=== PATIENT | male | born 1970 | race American Indian/Alaskan Native ===

== ENCOUNTER 2019-09-26 06:33 | Emergency (ER) | payer OTHER ==
[2019-09-26] MEDS ORDERED: FLUORESCEIN 1 MG STRIP OP ONE ×2 (08:04→08:07)
--- NOTE | 2019-09-26 09:33 | Emergency Department Report ---
ED Eye Problem HPI - General Chief complaint: Eye Problems Stated complaint: LEFT EYE IRRITATION Time Seen by Provider: 09/26/19 08:08 Source: patient Mode of arrival: Ambulatory Limitations: No Limitations - History of Present Illness Initial comments: 49-year-old -Citizen Of [place] male presents emergency department complaining of having slept with his contact about 2 days ago and since that time is been having some continued pain, discharge and progressively worsening and pressure to the left. States that his vision has significantly decreased as well. No fever, chills, sweats no ear pain no nausea, no no vomiting, no headache. chief complaint: eye pain, eye redness, vision change -: Gradual Location: left eye Place: home Eye Symptoms: redness, pain, discharge, decreased vision Severity: mild, moderate If Pain, Quality: throbbing Consistency: constant Associated Symptoms: none Treatments Prior to Arrival: none - Related Data Patient Tetanus UTD: No Allergies Allergy/AdvReac Type Severity Reaction Status Date / Time No Known Allergies Allergy Unverified 09/26/19 08:04 ED Review of Systems ROS: Stated complaint: LEFT EYE IRRITATION Other details as noted in HPI Comment: All other systems reviewed and negative ED Past Medical Hx - Past Medical History Previous Medical History?: Yes Hx Hypertension: Yes - Surgical History Past Surgical History?: No - Social History Smoking Status: Never Smoker Substance Use Type: None ED Physical Exam - General Limitations: No Limitations General appearance: alert, in no apparent distress - Head Head exam: Present: atraumatic, normocephalic - Expanded Eye Exam Expanded Eyelids: Erythema: Left, Swelling: Left Sclera/Conjunctival: Injection: Left Anterior chamber: Hyphema: Left (pt has hypopyon to left eye) - ENT ENT exam: Present: normal exam, mucous membranes moist, TM's normal bilaterally - Neck Neck exam: Present: normal inspection - Respiratory Respiratory exam: Present: normal lung sounds bilaterally. Absent: respiratory distress, wheezes, rales, rhonchi - Cardiovascular Cardiovascular Exam: Present: regular rate, normal rhythm. Absent: systolic murmur, diastolic murmur, rubs, gallop - GI/Abdominal GI/Abdominal exam: Present: soft, normal bowel sounds - Rectal Rectal exam: Present: deferred - Extremities Exam Extremities exam: Present: normal inspection, normal capillary refill - Back Exam Back exam: Present: normal inspection. Absent: CVA tenderness (R), CVA tenderness (L) - Neurological Exam Neurological exam: Present: alert, oriented X3, CN II-XII intact, normal gait - Psychiatric Psychiatric exam: Present: normal affect, normal mood - Skin Skin exam: Present: warm, dry, intact, normal color. Absent: rash ED Course Vital Signs 09/26/19 09/26/19 06:44 11:44 Temperature 98.5 F 98.5 F Pulse Rate 68 60 Respiratory 18 16 Rate Blood Pressure 162/105 Blood Pressure 163/108 [Right] O2 Sat by Pulse 96 100 Oximetry ED Medical Decision Making - Medical Decision Making 49-year-old Citizen Of [place] male reports sleeping in contact about 2 to 3 days ago and having some redness and irritation to the left eye. He was ever discovered to have loss of vision to the eye as well associated with pain and evolving infection which will require ophthalmology evaluation. Patient had [id number] with attending Dr. Patterson agreed with the need to transfer to [place]. Please see his note for more detail Critical care attestation.: If time is entered above; I have spent that time in minutes in the direct care of this critically ill patient, excluding procedure time. ED Disposition Clinical Impression: Hypopyon of left eye Disposition: [id number] ANOTHER TYPE [facility]THCARE Is pt being admited?: No Does the pt Need Aspirin: No Condition: Stable Referrals: PRIMARY CARE, [Primary Care Provider] - 3-5 Days
--- NOTE | 2019-09-26 11:33 | Emergency Department Report ---
Blank Doc - Documentation Documentation: Patient was seen and examined. Please refer to the PAs note. He was found to have a corneal ulcer complicated by hypopyon. I spoke with Dr. Bravo at [facility]. He was kind to accept the patient for transfer. The [facility] transfer center stated the patient would have to come by am bulance despite the availability of the to drive the patient. Thus, he will be transferred by ambulance. No treatment was recommended by the server engineer. The eye will be protected with a shield if available. Diagnostic impression Corneal ulcer O.S. Hypopyon Plan Transfer to [facility]
[2019-09-26 11:44] VITALS: BP 163/108
== END 2019-09-26 14:10 | disposition home or self-care (01) ==
LOC: ED 06:33
DX: H57.12 Ocular pain, left eye (principal); I10 Essential (primary) hypertension
CPT/HCPCS: 99282